=== PATIENT | male | born 1960 | race Caucasian/White ===

== ENCOUNTER → 2020-04-01 | Outpatient (CLI) | payer OTHER ==
[~2020-04-01] MED LIST: HYDROCODON-ACE1 EAC2 PO; HYDROCODON-ACE1 EAC6 PO; LABETALOL HCL200 MG PO; NEURONTIN600 MG PO; NORVASC5 MG PO; PRILOSEC OTC20 MG PO; PRINIVIL20 MG PO; VIBRAMYCIN 100100 MG GT
[2020-04-01 11:36] LABS: BUN/CREATININE RATIO 9 (0-10)
== END ==
LOC: OPSV2 10:00
PROVIDERS: Anesthesiology
DX: Z01.818 Encounter for other preprocedural examination (principal); M65.311 Trigger thumb, right thumb
CPT/HCPCS: 36415; 80048; 93005

== ENCOUNTER → 2020-04-09 | Day surgery (SDC) | payer OTHER ==
[~2020-04-09] VITALS: Ht 170.2 cm; Wt 73.9 kg
== END | disposition home or self-care (01) ==
LOC: OR 07:02
DX: M65.311 Trigger thumb, right thumb (principal); M75.101 Unspecified rotator cuff tear or rupture of right shoulder, not specified as traumatic; I10 Essential (primary) hypertension; E78.5 Hyperlipidemia, unspecified; K21.9 Gastro-esophageal reflux disease without esophagitis; Z80.3 Family history of malignant neoplasm of breast; Z79.899 Other long term (current) drug therapy; Z20.822 Contact with and (suspected) exposure to COVID-19
CPT/HCPCS: J2001; J2250; J2704; J3010; J7120

== ENCOUNTER → 2021-11-19 | Outpatient (CLI) | payer OTHER | LOC: EMI 14:11 | DX: M50.11 Cervical disc disorder with radiculopathy, high cervical region (principal) | CPT/HCPCS: 72141 ==